=== PATIENT | female | born 1975 | race Hispanic/Latino ===

== ENCOUNTER 2017-09-27 21:04 | Emergency (ER) | payer OTHER ==
[2017-09-27] MEDS ORDERED: SODIUM CHLORIDE 0.9% 1000ML 1,000 ML IV ONE (21:49)
[2017-09-27] MEDS ORDERED: DICYCLOMINE HCL 10 MG/ML 2ML AMP IM ONE (21:49)
[2017-09-27] MEDS ORDERED: ONDANSETRON HCL 4 MG/2 ML VIAL ONE (21:49)
[2017-09-27 21:54] LABS: BASOPHILS % (AUTO) 0.9 % (0.0-5.0); EOSINOPHILS % (AUTO) 3.2 % (0.0-8.0); HEMATOCRIT 36.7 % (36-48); LYMPHOCYTES % (AUTO) 29.1 % (21.0-51.0); MEAN CORPUSCULAR HEMOGLOBIN 29.4 pg (27.0-33.0); MEAN CORPUSCULAR HGB CONC 34.4 g/dL (32.0-36.0); MEAN CORPUSCULAR VOLUME 85.4 fL (79-99); MONOCYTES % (AUTO) 6.9 % (3.0-13.0); NEUTROPHILS % (AUTO) 59.9 % (40.0-77.0); PLATELET COUNT (AUTO) 247 K/uL (130-400); RED CELL DISTRIBUTION WIDTH 13.8 % (11.0-15.5); WHITE BLOOD COUNT (AUTO) 7.8 K/uL (4.8-10.8)
[2017-09-27 22:04] LABS: CREATININE 0.6 mg/dL (0.5-1.5); POTASSIUM 3.5 mmol/L (3.5-5.1)
[2017-09-27 22:08] LABS: ALBUMIN 3.9 g/dL (3.5-5.0); BILIRUBIN,TOTAL 0.3 mg/dL (0.2-1.0); TOTAL PROTEIN, SERUM 7.7 g/dL (6.0-8.3)
[2017-09-27] MEDS ORDERED: KETOROLAC TROMETHAMINE 15MG/ML ONE (22:25)
[2017-09-27] MEDS ORDERED: FAMOTIDINE/PF 20 MG/2 ML VIAL IV ONE (22:25)
[2017-09-27 22:38] LABS: APPEARANCE,URINE Clear (CLEAR); BILIRUBIN,URINE Negative (NEGATIVE); COLOR,URINE Yellow (YELLOW); GLUCOSE, URINE (UA) Negative (NEGATIVE); KETONES,URINE Negative (NEGATIVE); LEUKOCYTE ESTERASE ,URINE Negative (NEGATIVE); NITRATE,URINE Negative (NEGATIVE); OCCULT BLOOD,URINE Negative (NEGATIVE); PH,URINE 6.5 (5.0-8.0); PROTEIN,URINE Trace (NEGATIVE)
[2017-09-27 22:58] LABS: BACTERIA,URINE Few /HPF (None Seen); MUCUS,URINE Few LPF (None Seen)
== END 2017-09-27 23:11 | disposition home or self-care (01) ==
LOC: EDH 21:04
DX: R10.13 Epigastric pain (principal); R11.2 Nausea with vomiting, unspecified
CPT/HCPCS: 36415; 80053; 81001; 83690; 84703; 85025; 96361; 96365; 96372; 96375; 99284; J0500; J1885; J2405; J3490; J7030

== ENCOUNTER 2018-08-07 18:30 | Emergency (ER) | payer MEDICAID, OTHER ==
[2018-08-07] MEDS ORDERED: ACETAMINOPHEN 325 MG TAB ONE (19:27)
== END 2018-08-07 20:05 | disposition home or self-care (01) ==
LOC: EDH 18:30
DX: S50.01XA Contusion of right elbow, initial encounter (principal); G89.29 Other chronic pain; M79.631 Pain in right forearm; X50.0XXA Overexertion from strenuous movement or load, initial encounter; Y93.89 Activity, other specified; Y92.89 Other specified places as the place of occurrence of the external cause; Y99.8 Other external cause status
CPT/HCPCS: 73080; 73090

== ENCOUNTER 2022-03-14 17:23 | Emergency (ER) | payer OTHER ==
[~2022-03-14] VITALS: Ht 157.5 cm; Wt 68.0 kg
[2022-03-14 17:58] LABS: BASOPHILS % (AUTO) 0.2 % (0.0-5.0); EOSINOPHILS % (AUTO) 0.9 % (0.0-8.0); HEMATOCRIT 41.1 % (36-48); LYMPHOCYTES % (AUTO) 4.6 % (21.0-51.0); MEAN CORPUSCULAR HEMOGLOBIN 29.6 pg (27.0-33.0); MEAN CORPUSCULAR HGB CONC 35.3 g/dL (32.0-36.0); MEAN CORPUSCULAR VOLUME 83.9 fL (79-99); MONOCYTES % (AUTO) 3.4 % (3.0-13.0); NEUTROPHILS % (AUTO) 90.5 % (40.0-77.0); PLATELET COUNT (AUTO) 250 K/uL (130-400); RED CELL DISTRIBUTION WIDTH 12.8 % (11.0-15.5); WHITE BLOOD COUNT (AUTO) 13.4 K/uL (4.8-10.8)
[2022-03-14 18:02] LABS: APPEARANCE,URINE CLEAR (CLEAR); BILIRUBIN,URINE NEGATIVE (NEGATIVE); COLOR,URINE YELLOW (YELLOW); GLUCOSE, URINE (UA) NEGATIVE (NEGATIVE); KETONES,URINE 40 mg/dL (NEGATIVE); LEUKOCYTE ESTERASE ,URINE NEGATIVE Leu/uL (NEGATIVE); NITRATE,URINE NEGATIVE (NEGATIVE); OCCULT BLOOD,URINE NEGATIVE (NEGATIVE); PH,URINE 5.5 (5.0-8.0); PROTEIN,URINE 50 mg/dL (NEGATIVE); UROBILINOGEN,URINE 0.2 mg/dL (0.2-1.0)
[2022-03-14 18:05] LABS: HYALINE CASTS, URINE 0-1 /LPF (0-1 /LPF); MUCUS,URINE FEW LPF (None Seen); RBC,URINE 0-1 /HPF (0-1); SQUAMOUS EPITHELIAL CELL,UR FEW /HPF (0-2); WBC,URINE 0-1 /HPF (0-1)
[2022-03-14 18:06] LABS: HCG,QUALITATIVE URINE NEGATIVE (NEGATIVE)
[2022-03-14 18:10] LABS: CREATININE 0.6 mg/dL (0.5-1.5); POTASSIUM 3.7 mmol/L (3.5-5.1)
[2022-03-14] MEDS: 0.9%NACL 1000ML 1,000 ML IV ONE (18:13)
[2022-03-14] MEDS: ONDANSETRON 4MG INJ IVP ONE (18:13)
[2022-03-14] MEDS: MORPHINE 2 MG SYG IVP ONE (18:13)
[2022-03-14 18:14] LABS: ALBUMIN 4.2 g/dL (3.5-5.0); TOTAL PROTEIN, SERUM 8.7 g/dL (6.0-8.3)
[2022-03-14] MEDS ORDERED: DICL50TA9 PO (20:12)
[2022-03-14 20:43] VITALS: BP 147/93
== END 2022-03-14 20:45 | disposition home or self-care (01) ==
LOC: EDH 17:23
DX: K80.70 Calculus of gallbladder and bile duct without cholecystitis without obstruction (principal); N28.89 Other specified disorders of kidney and ureter
CPT/HCPCS: 99284; 96374; 76705; 96361; 96375; 80053; 83690; 85025; 81001; 81025; 36415; J7030; J2405